=== PATIENT | male | born 1930 | race Caucasian/White ===

== ENCOUNTER 2020-03-26 12:18 | Inpatient (IN) | payer MEDICARE ==
--- NOTE | 2020-03-26 12:25 | ER Document Report ---
ED Medical Screen (RME) - General Chief Complaint: Altered Mental Status Stated Complaint: ALTERED MENTAL STATUS Time Seen by Provider: 03/26/20 12:20 Notes: Patient is an 89-year-old male who presents to the emergency department with altered mental status. Family member was at cart during assessment. She states that the patient's last known well time was at 10:00 last night. Patient woke up this morning disoriented. Patient was slurring his words. Family member states that the patient has short-term memory loss and also has a history of hypertension. Exam: Disoriented; slurred speech. I have greeted and performed a rapid initial assessment of this patient. A comprehensive ED assessment and evaluation of the patient, analysis of test results and completion of medical decision making process will be conducted by an additional ED providers.
--- NOTE | 2020-03-26 12:49 | RADIOLOGY REPORT (SQ) ---
EXAM DESCRIPTION: CT HEAD WITHOUT IMAGES COMPLETED DATE/TIME: 03/26/2020 12:35 pm REASON FOR STUDY: altered mental status COMPARISON: None. TECHNIQUE: Axial images acquired through the brain without intravenous contrast. Images reviewed wi th bone, brain and subdural windows. Additional sagittal and coronal reconstructions were generated. Images stored on PACS. All CT scanners at this facility use dose modulation, iterative reconstruction, and/or weight based d osing when appropriate to reduce radiation dose to as low as reasonably achievable (ALARA). [facility]: Dose Right [facility]: CareDose [facility]: Dose Right [facility]: Teradose 4D [facility]: Droidhen RADIATION DOSE: CT Rad equipment meets quality standard of care and radiation dose reduction techniq ues were employed. CTDIvol: 21.6 mGy. DLP: 498 mGy-cm.mGy. LIMITATIONS: None. FINDINGS: VENTRICLES: Prominent. CEREBRUM: No masses. No hemorrhage. No midline shift. Areas of low density in the white matter mos t likely due to chronic micro-vascular ischemic change. No evidence for acute infarction. CEREBELLUM: No masses. No hemorrhage. No alteration of density. No evidence for acute infarction. EXTRAAXIAL SPACES: Age-related involutional change. No fluid collections. No masses. ORBITS AND GLOBE: No intra- or extraconal masses. Normal contour of globe without masses. CALVARIUM: No fracture. PARANASAL SINUSES: No fluid or mucosal thickening. SOFT TISSUES: No mass or hematoma. OTHER: No other significant finding. IMPRESSION: CHRONIC CHANGES OF ATROPHY AND MICROVASCULAR ISCHEMIA. NO ACUTE PROCESS. EVIDENCE OF ACUTE STROKE: NO. COMMENT: Pertinent positive or negative findings of the imaging study reported as a CRITICAL EXAM reynaldo [facility] at12:42 on 03/26/2020. Category of Critical Exam: Stroke alert. TECHNICAL DOCUMENTATION: JOB ID: [id number] Quality ID # [id number]: Final reports with documentation of one or more dose reduction techniques (e.g., Au tomated exposure control, adjustment of the mA and/or kV according to patient size, use of iterative reconstruction technique) 2010 [employer]- All Rights Reserved Reading location - IP/workstation name: [email or web address]
[2020-03-26] MEDS ORDERED: LORAZEPAM INJ 2 MG/1 ML VIAL IV ONE ×2 (12:55→13:44)
--- NOTE | 2020-03-26 13:04 | RADIOLOGY REPORT (SQ) ---
EXAM DESCRIPTION: CHEST SINGLE VIEW IMAGES COMPLETED DATE/TIME: 03/26/2020 12:40 pm REASON FOR STUDY: AMS COMPARISON: None. EXAM PARAMETERS: NUMBER OF VIEWS: One view. TECHNIQUE: Single frontal radiographic view of the chest acquired. RADIATION DOSE: NA LIMITATIONS: None. FINDINGS: LUNGS AND PLEURA: No opacities, masses or pneumothorax. No pleural effusion. MEDIASTINUM AND HILAR STRUCTURES: No masses. Contour normal. HEART AND VASCULAR STRUCTURES: Heart normal in size. Normal vasculature. BONES: No acute findings. HARDWARE: None in the chest. OTHER: No other significant finding. IMPRESSION: NO ACUTE RADIOGRAPHIC FINDING IN THE CHEST. TECHNICAL DOCUMENTATION: JOB ID: [id number] 2010 [employer]- All Rights Reserved Reading location - IP/workstation name: DC
[2020-03-26] MEDS ORDERED: HALOPERIDOL LACTATE INJ 5 MG/1 ML VIAL IV ONE ×2 (13:09→13:30)
[2020-03-26] MEDS ORDERED: DIPHENHYDRAMINE HCL 50 MG/ML VIAL IV ONE ×2 (13:09→13:30)
[2020-03-26 13:21] LABS: ABSOLUTE BASOPHILS # (AUTO) 0.1 10^3/uL (0.0-0.2); ABSOLUTE EOSINOPHILS # (AUTO) 0.1 10^3/uL (0.0-0.6); ABSOLUTE LYMPHOCYTES (AUTO) 1.9 10^3/uL (0.5-4.7); ABSOLUTE MONOCYTES (AUTO) 0.8 10^3/uL (0.1-1.4); ABSOLUTE NEUT (AUTO) 3.6 10^3/uL (1.7-8.2); EOSINOPHILS % (AUTO) 2.3 % (0-6); HEMATOCRIT 41.1 % (37.9-51.0); HEMOGLOBIN 13.9 g/dL (13.5-17.0); LYMPHOCYTES % (AUTO) 29.4 % (13-45); MEAN CORPUSCULAR HEMOGLOBIN 32.2 pg (27.0-33.4); MEAN CORPUSCULAR VOLUME 95 fl (80-97); MONOCYTES % (AUTO) 11.8 % (3-13); PLATELET COUNT 170 10^3/uL (150-450); RED BLOOD COUNT 4.33 10^6/uL (4.35-5.55); RED CELL DISTRIBUTION WIDTH 14.1 % (11.5-14.0); SEGMENTED NEUTROPHILS % (AUTO) 55.5 % (42-78); TOTAL CELLS COUNTED % (AUTO) 100 %; WHITE BLOOD COUNT 6.4 10^3/uL (4.0-10.5)
[2020-03-26 13:24] LABS: INTERNATIONAL RATION (INR) 1.09; PROTHROMBIN TIME 14.2 SEC (11.4-15.4)
[2020-03-26 13:25] LABS: PARTIAL THROMBOPLASTIN TIME 25.1 SEC (23.5-35.8)
[2020-03-26 13:42] LABS: APPEARANCE,URINE CLEAR; BILIRUBIN,URINE NEGATIVE (NEGATIVE); COLOR,URINE YELLOW; GLUCOSE, URINE NEGATIVE (NEGATIVE); KETONES,URINE NEGATIVE (NEGATIVE); LEUKOCYTE ESTERASE,URINE NEGATIVE (NEGATIVE); NITRITE,URINE NEGATIVE (NEGATIVE); PROTEIN,URINE 100 mg/dL (NEGATIVE); UROBILINOGEN,URINE NEGATIVE mg/dL (<2.0)
[2020-03-26 13:50] LABS: ALBUMIN 4.3 g/dL (3.5-5.0); ALKALINE PHOSPHATASE 130 U/L (38-126); ANION GAP 11 (5-19); ASPARTATE AMINO TRANSFERASE 37 U/L (17-59); BILIRUBIN,TOTAL 0.7 mg/dL (0.2-1.3); BLOOD UREA NITROGEN 21 mg/dL (7-20); C-REACTIVE PROTEIN 5.1 mg/L (<10.0); CALCIUM 9.7 mg/dL (8.4-10.2); CARBON DIOXIDE 24 mmol/L (22-30); CHLORIDE 100 mmol/L (98-107); CREATINE KINASE 90 U/L (55-170); GLUCOSE 122 mg/dL (75-110); POTASSIUM 4.2 mmol/L (3.6-5.0); TOTAL PROTEIN 7.7 g/dL (6.3-8.2)
[2020-03-26] MEDS ORDERED: OLANZAPINE INJ/PF 10 MG SDV IM ONE (13:50)
[2020-03-26] MEDS ORDERED: PROPOFOL 1,000 MG/100 ML INFUS..BTL IV PRN ×2 (14:30→14:31)
[2020-03-26] MEDS ORDERED: PROPRANOLOL HCL INJ/PF 1 MG/1 ML SDV IV ONE (14:35)
[2020-03-26] MEDS ORDERED: NORMAL SALINE 500 ML IV ONE (14:50)
[2020-03-26] MEDS ORDERED: MAGNESIUM SULFATE/D5W 3 GM/300 ML RTUPB IV ONE (14:54)
[2020-03-26] MEDS: MAGNESIUM SULFATE/D5W 1 GM/100 ML RTUPB IV SCH ×3 (15:00→17:00)
--- NOTE | 2020-03-26 15:15 | RADIOLOGY REPORT (SQ) ---
EXAM DESCRIPTION: CHEST SINGLE VIEW IMAGES COMPLETED DATE/TIME: 03/26/2020 3:02 pm REASON FOR STUDY: Post intubation COMPARISON: 03/26/2020 at 1238 hours. EXAM PARAMETERS: NUMBER OF VIEWS: One view. TECHNIQUE: Single frontal radiographic view of the chest acquired. RADIATION DOSE: NA LIMITATIONS: None. FINDINGS: LUNGS AND PLEURA: No opacities, masses or pneumothorax. No pleural effusion. MEDIASTINUM AND HILAR STRUCTURES: No masses. Contour normal. HEART AND VASCULAR STRUCTURES: Heart normal in size. Normal vasculature. BONES: No acute findings. HARDWARE: Endotracheal tube, tip located 5 cm proximal to the josiah. Nasogastric tube, tip not well -visualized but appears to be below the diaphragm. OTHER: No other significant finding. IMPRESSION: LIFE LINES DESCRIBED. OTHERWISE NO ACUTE RADIOGRAPHIC FINDING IN THE CHEST. TECHNICAL DOCUMENTATION: JOB ID: [id number] 2010 [employer]- All Rights Reserved Reading location - IP/workstation name: [id number]
[2020-03-26] MEDS ORDERED: DEXTROSE 5%-WATER 250 ML with NOREPINEPHRINE BITARTRATE 4 MG IV PRN ×2 (15:19)
[2020-03-26] MEDS ORDERED: NOREPINEPHRINE BITARTRATE INJ/PF 4 MG/4 ML SDV IV ONE (15:40)
--- NOTE | 2020-03-26 15:45 | CRITICAL CARE ADMISSION REPORT ---
[facility] Date:: 03/26/20 Time:: 15:00 Reason for ICU Reason:: Post Cardiac Arrest Admission Date/Time & PCP: Admission Date/Time: Primary Care Provider: HPI: 89-year-old white male with advanced dementia with unknown current past medical history presented to the hospital emergency room today after his found him to be confused and encephalopathic. His encephalopathy progressed to the point that he became combative and required multiple rounds of medications to control agitation and combativeness. In review of medications he received 10 mg of Zyprexa IM 2 mg of Ativan 6 mg of Haldol in interventional dosing pattern. He was sent for CT which was difficult to obtain secondary to his movement. CT was unremarkable. He then had V. tach on the monitor became pulseless and underwent 1-2 rounds of ACLS with epinephrine and CPR. He was intubated for this. Critical care was called for post cardiac arrest management and care. Patient is currently unresponsive and on mechanical ventilation. He is hypotens red. Lengthy discussion was carried out with his . She says that he was last normal in the evening. His normal is moderate dementia and he has been worsening. He awoke this morning confused agitated and difficult to reason with. She is unsure if he had any urinary tract symptoms or respiratory symptoms. Neither the or the patient have been exposed publicly to any illnesses. They have been quarantined at the request of their family who are of medical background. Patient was seen and examined in the emergency room. He was hypotensive with a blood pressure of 74/40. IV fluids were ordered. Stat bedside critical care ultrasound and echo showed dilated ejection fraction at approximately 25% with global dysfunction. Levophed has been ordered. His skin is cool. Pupils are midrange and slightly reactive. He moves extremities to noxious stimulus History obtained from:: , ED staff, Family - Diagnosis/Plan (1) Cardiac arrest Is this a current diagnosis for this admission?: Yes (2) Cardiogenic shock Is this a current diagnosis for this admission?: Yes (3) Acute respiratory failure with hypoxia Is this a current diagnosis for this admission?: Yes (4) Prolonged QT interval syndrome Is this a current diagnosis for this admission?: Yes (5) Acute metabolic encephalopathy Is this a current diagnosis for this admission?: Yes (6) Dementia associated with other underlying disease with behavioral disturbance Is this a current diagnosis for this admission?: Yes Plan Summary: Patient has post cardiac arrest syndrome with hypotension. His ejection fractio n is reduced as well. I reviewed his EKG which shows a prolonged QTC with intraventricular conduction delay and ectopic atrial tachycardia. He has a large S wave wave in lead 1. There is a trend to right bundle branch block and a left anterior fascicular block. My suspicion is that the patient has some type of encephalitis which may be infectious in origin. This then caused significant combativeness in a patient who already had moderate dementia. An attempt to control and protect the patien t in the emergency room gave medications which were appropriate given the circumstances and situation. It appears that there may have been an R-on-T phenomenon which may have occurred given his EKG findings and bundle branch block patterns. I have given him magnesium quickly and will continue to monitor his electrolytes accordingly. Given his presentation this patient will obviously need spinal tap for CSF analysis. He is hypotensive and will need central venous access as well as arterial cannulation for blood pressure monitoring. Having discussed the treatment options for this patient the has declined any aggressive care. She also place me on the phone with her family members who are of the medical background 1 of which is her son-in-law who is a physician. They are in agreement with the 's discussion regarding DNR/DNI status and no aggressive care. Given the fact the patient is on mechanical ventilation with hypotension there are in agreement with Levopatriciaed but requested the patient not have any escalation of care. They are requesting that he be maintained on mechanical ventilation until they arrive so that they may transition to comfort care mode with family present. To that end we have agreed and feel that this is reasonable. We did come to an agreement that if he should continue to fail that they are comfortable and transition to comfort care mode prior to their arrival. Past Medical History Medical History: Other - Unknown patient has not been here before. states patient has dementia Social/Family History - Social History Lives with: Spouse/Significant other Smoking Status: Unknown if Ever Smoked - Family History Family History: None - Medication/Allergies Allergies/Adverse Reactions: cephalexin [From Keflex] Allergy (Verified 03/26/20 13:07) Review of Systems ROS unobtainable: Due to endotracheal tube, Due to mental status Physical Exam Vital Signs: Temp Pulse Resp BP Pulse Ox 20 76/44 L 100 03/26/20 15:01 03/26/20 15:00 03/26/20 15:01 Intake & Output 03/25/20 03/26/20 03/27/20 06:59 06:59 06:59 Weight 98.43 kg Weight/Height Weight 98.43 kg Height 5 ft 11 in General appearance: PRESENT: well-developed, well-nourished Exam: Intubated elderly toxic appearing 89-year-old male responsive to noxious s timulus only. Head exam: PRESENT: atraumatic, normocephalic Eye exam: PRESENT: conjunctival injection, conjunctiva pink, other - Pupils midrange and slow to react. ABSENT: nystagmus Mouth exam: PRESENT: dry mucosa Teeth exam: PRESENT: edentulous Neck exam: PRESENT: other - Intubated. ABSENT: carotid bruit, JVD, lymphadenopathy, thyromegaly, tracheal deviation Respiratory exam: PRESENT: rhonchi, tachypnea. ABSENT: accessory muscle use, unlabored Cardiovascular exam: PRESENT: irregular rhythm Pulses: ABSENT: normal dorsalis pedis pul GI/Abdominal exam: PRESENT: diminished bowel sounds, firm. ABSENT: distended Rectal exam: PRESENT: deferred Gentrourinary exam: PRESENT: indwelling catheter, other - Blood noted in urinary catheter Extremities exam: PRESENT: pedal edema Musculoskeletal exam: ABSENT: deformity, dislocation Neurological exam: PRESENT: altered, other - Response to noxious stimulus only. Does not follow commands. Pupils midrange and slow to react Skin exam: ABSENT: cyanosis, mottled, pallor, petechiae Tubes/Lines: PRESENT: Endotracheal Tube, Nasogastic Tube, Other - Peripheral IVs Laboratory/Radiographs Laboratory Results: 03/26/20 12:55 03/26/20 12:55 03/26/20 03/26/20 03/26/20 12:55 12:55 13:30 WBC 6.4 RBC 4.33 L Hgb 13.9 Hct 41.1 MCV 95 MCH 32.2 MCHC 34.0 RDW 14.1 H Plt Count 170 Seg Neutrophils % 55.5 Sodium 134.8 L Potassium 4.2 Chloride 100 Carbon Dioxide 24 Anion Gap 11 BUN 21 H Creatinine 1.39 H Est GFR ( Amer) 58 L Glucose 122 H Calcium 9.7 Magnesium 2.2 Total Bilirubin 0.7 AST 37 Alkaline Phosphatase 130 H C-Reactive Protein 5.1 Total Protein 7.7 Albumin 4.3 Urine Color YELLOW Urine Appearance CLEAR Urine pH 6.0 Ur Specific [place] 1.010 Urine Protein 100 H Urine Glucose (UA) NEGATIVE Urine Ketones NEGATIVE Urine Blood SMALL H Urine Nitrite NEGATIVE Ur Leukocyte Esterase NEGATIVE Urine WBC (Auto) 2 Urine RBC (Auto) 2 03/26/20 03/26/20 12:55 12:55 Creatine Kinase 90 Troponin I 0.023 Impressions: Head CT 03/26/20 00:00 IMPRESSION: CHRONIC CHANGES OF ATROPHY AND MICROVASCULAR ISCHEMIA. NO ACUTE PROCESS. EVIDENCE OF ACUTE STROKE: NO. Chest X-Ray 03/26/20 14:30 IMPRESSION: LIFE LINES DESCRIBED. OTHERWISE NO ACUTE RADIOGRAPHIC FINDING IN THE CHEST. All labs, radiographs, diagnostic studies and EKGs were personally reviewed: Yes In addition, reports of radiographic and diagnostic studies were read: Yes Critical Time Critical Time (minutes): 70 -: The care of a critically ill patient is dynamic. This note represents a static moment in the admission process. Orders and treatments may be given simultaneously and urgently, and time is not pharmaceutical sales representative of the treatment process. This patient requires Critical Care secondary to life threatening organ or limb dysfunction. Without Critical Care services, the patient is at risk for increased mortality and morbidity.
--- NOTE | 2020-03-26 18:44 | EKG REPORT ---
SEVERITY:- ABNORMAL ECG - SINUS TACHYCARDIA RBBB AND LAFB PROBABLE LVH WITH SECONDARY REPOL ABNRM : Confirmed by: Alejandro Trinh MD 26-Mar-2020 18:43:32
[2020-03-26] MEDS: MORPHINE SULFATE 60 MG/60 ML RTUINJ IV PRN (18:46)
[2020-03-26] MEDS: LORAZEPAM INJ 2 MG/1 ML VIAL IV PRN (20:04)
[2020-03-26] MEDS ORDERED: EPINEPHRINE INJ 1 MG/10 ML DISP.SYRIN ONE (20:12)
[2020-03-26] MEDS ORDERED: MORPHINE SULFATE 10 MG/ML INJ ONE (21:00)
[2020-03-26] MEDS ORDERED: MORPHINE SULFATE 10 MG/ML INJ IV ONE (22:00)
[2020-03-27] MEDS: LORAZEPAM INJ 2 MG/1 ML VIAL IV PRN ×2 (00:32→03:34)
[2020-03-27] MEDS ORDERED: SCOPOLAMINE HYDROBROMIDE 1.5 MG PATCH.TD72 TD ONE (00:45)
[2020-03-27] MEDS ORDERED: MORPHINE SULFATE 10 MG/ML INJ ONE (05:47)
[2020-03-27] MEDS ORDERED: MORPHINE SULFATE 10 MG/ML INJ IV ONE ×2 (05:49→06:05)
--- NOTE | 2020-03-27 09:31 | ER Document Report ---
Entered by VLAD MYERS SCRIBE 03/26/20 1254 Acting as scribe for:BHARATH JOHNSON MD ED General - General Chief Complaint: Altered Mental Status Stated Complaint: ALTERED MENTAL STATUS Time Seen by Provider: 03/26/20 12:20 Information source: Relative Cannot obtain history due to: Altered mental status Notes: This 89 year old male patient presents to the emergency department today with complaints of altered mental status. at bedside reports that the patient went to bed last night at 10:30 PM and he was seemingly normal. The patient woke up at 8:30 AM this morning and seemed to be slightly confused per . states that this morning when he woke up he would not take his morning meds and his speech seemed to be garbled. states that the patient is now significantly more confused now than he was when he woke up. Patient continues to try to get up out of bed, has brief episodes of explosive yelling/thrashing around, swinging and kicking at staff members. TRAVEL OUTSIDE OF THE [place] IN LAST 30 DAYS: No - Related Data Allergies/Adverse Reactions: cephalexin [From Keflex] Allergy (Verified 03/26/20 13:07) Past Medical History - General Information source: Relative Cannot obtain history due to: Altered mental status - Social History Smoking Status: Unknown if Ever Smoked Occupation: retired Lives with: Spouse/Significant other Family History: Reviewed & Not Pertinent - Past Medical History Cardiac Medical History: Reports: Hx Hypercholesterolemia, Hx Hypertension GI Medical History: Reports: Hx Gastroesophageal Reflux Disease Musculoskeletal Medical History: Reports Hx Gout Review of Systems - Review of Systems -: Yes ROS unobtainable due to patient's medical condition Physical Exam - Vital signs Vitals: Temp 98.2 F 03/26/20 12:19 Interpretation: Hypertensive, Tachycardic - General General appearance: Alert, Combative, Other - Agitated, confused - HEENT Head: Normocephalic, Atraumatic Eyes: Normal Pupils: PERRL - Respiratory Respiratory status: No respiratory distress Breath sounds: Normal - Cardiovascular Rhythm: Regular, Tachycardia Heart sounds: Normal auscultation Murmur: No - Abdominal Inspection: Normal Bowel sounds: Normal Tenderness: Nontender - Genitourinary Inspection: Normal - Back Back: Normal - Extremities General upper extremity: Normal inspection General lower extremity: Normal inspection - Neurological Neuro grossly intact: Yes Cognition: Confused Orientation: Disoriented to events Wirtz Coma Scale Verbal: Confused Devan Coma Scale Motor: Localizes to Pain Speech: Expressive aphasia Cranial nerves: Normal Cerebellar coordination: Normal Motor strength normal: LUE, RUE, LLE, RLE Additional motor exam normals: Equal music leader Babinski reflex: Normal (flexor plantar) Sensory: Normal Notes: Patient appears to be encephalopathic. He is yelling out and complaining about anyone who touches him. He tries to strike and kick at people. He is using multi word phrases, but many of the words are jumbled or part of the word is pronounced wrong. How he is expressing himself seems to make sense in the context of what he is trying to complain about. - Psychological Associated symptoms: Psychomotor agitation, Other - Dementia, encephalopathic - Skin Skin Temperature: Warm Skin Moisture: Dry Skin Color: Normal Course - Re-evaluation Re-evalutation: 03/26/20 13:30 The patient has had 1 mg Ativan IV, 3 mg of Haldol IV, 12.5 mg Benadryl IV. At this time he continues to be quite combative and difficult to control however there is some sedation noted compared to prior to getting the medications. He will be given additional doses of Haldol and Benadryl and then reevaluated. 03/26/20 19:05 Around 1420, I was called to the room as the patient had just gone into V. fib cardiac arrest. Chest compressions had been started, [id number] was applied. The defibrillator/pacer pads were applied. Patient received 1 mg epinephrine, he was defibrillated, CPR resumed. He was intubated with a 7.5 endotracheal tube, and shortly afterwards developed ROSC. He was placed on a dipper Van drip. - Vital Signs Vital signs: Temp Pulse Resp BP Pulse Ox 99.3 F 69 21 H 105/45 L 94 03/26/20 17:24 03/26/20 19:41 03/26/20 19:41 03/26/20 19:41 03/26/20 19:41 - Laboratory Result Diagrams: 03/26/20 12:55 03/26/20 12:55 Laboratory results interpreted by me: 03/26/20 03/26/20 03/26/20 12:55 12:55 13:30 RBC 4.33 L RDW 14.1 H Sodium 134.8 L BUN 21 H Creatinine 1.39 H Est GFR ( Amer) 58 L Est GFR (MDRD) Non-Af 48 L Glucose 122 H Alkaline Phosphatase 130 H Ammonia Urine Protein 100 H Urine Blood SMALL H 03/26/20 15:05 RBC RDW Sodium BUN Creatinine Est GFR ( Amer) Est GFR (MDRD) Non-Af Glucose Alkaline Phosphatase Ammonia < 8.7 L Urine Protein Urine Blood - Diagnostic Test Radiology reviewed: Image reviewed, Reports reviewed - CT scan of the head shows chronic atrophy with microvascular ischemic changes. Chest x-ray does not show acute cardiopulmonary changes. CXR--NAD, post intubation chest x-ray shows the e ndotracheal tube tip 5 cm proximal to the josiah, nasogastric tube appears to go below the diaphragm. - EKG Interpretation by Pr EKG shows normal: Sinus rhythm, [place], Intervals, QRS Complexes, ST-T Waves Rate: Tachycardia - 116 [place]/QRS: RBBB, LAHB/LAFB Voltage: Consistant with LVH When compared to previous EKG there are: Previous EKG unavailable - This is a post arrest EKG. Procedures - Intubation Orotracheal Time of Intubation: 14:20 Airway evaluation: Normal anatomy, Copious secretions Intubation method: Orotracheal Blade type: Other - Ap vision curved channeled blade Equipment used: Other - Ap vision ETT size: 7.5 Breath Sounds after Intubation: Equal End tidal CO2 confirmed: Yes Ventilator settings: SIMV Post Intubation Xray: Yes Intubation Complications: No complications Critical Care Note - Critical Care Note Total time excluding time spent on procedures (mins): 50 Comments: At least 50 minutes spent on initial evaluation of the patient discussions with his spouse, and attempted medical management of his acute delirium and encephalopathy. Patient was discussed with hospital service. At some point after that the patient went into ventricular fibrillation cardiac arrest, he was successfully resuscitated to ROSC, intubated by myself, and discussions with the iron melter were done. The patient was ultimately admitted to the intensive care unit. Discharge - Discharge Clinical Impression: Dementia associated with other underlying disease with behavioral disturbance, Prolonged QT interval syndrome, Cardiac arrest, Acute metabolic encephalopathy, Acute respiratory failure with hypoxia, History of sudden cardiac arrest successfully resuscitated, Cardiac arrest with ventricular fibrillation Condition: Critical Disposition: ADMITTED INPATIENT Admitting Provider: Hanny (Publications Designer) Unit Admitted: ICU I personally performed the services described in the documentation, reviewed and edited the documentation which was dictated to the scribe in my presence, and it accurately records my words and actions.
[2020-03-27 10:10] VITALS: BP 101/59
--- NOTE | 2020-03-27 11:15 | PDOC CRITICAL CARE PROG REPORT ---
General Date:: 03/27/20 Hospital Day:: 1 Resuscitation Status: Do Not Resuscitate Events in the past 12 to 24 Hours:: Made comfort care by family request. Review of systems relevant to events:: Neurological, CV, Respiratory Reason for ICU Addmission:: Post Cardiac Arrest - Medications: Medications reviewed and adjusted accordingly: Yes Vasopressors:: None Sedation:: PRN versed. Morphine Physical Exam Vital Signs: Temp Pulse Resp BP Pulse Ox 99.3 F 69 7 L 101/59 L 86 L 03/26/20 17:24 03/26/20 19:41 03/27/20 10:00 03/27/20 07:44 03/27/20 10:00 Intake & Output 03/26/20 03/27/20 03/28/20 06:59 06:59 06:59 Intake Total 829 Output Total 415 Balance 414 Weight 100.1 kg Weight/Height Weight 100.1 kg Height 5 ft 9 in General appearance: PRESENT: no acute distress Head exam: PRESENT: atraumatic, normocephalic Eye exam: PRESENT: conjunctiva pink, EOMI, PERRLA. ABSENT: scleral icterus Ear exam: PRESENT: normal external ear exam Mouth exam: PRESENT: dry mucosa Teeth exam: PRESENT: other - Endentulous Respiratory exam: PRESENT: decreased breath sounds Cardiovascular exam: PRESENT: RRR. ABSENT: diastolic murmur, rubs, systolic murmur GI/Abdominal exam: PRESENT: normal bowel sounds, soft. ABSENT: distended, guarding, mass, organolmegaly, rebound, tenderness Rectal exam: PRESENT: deferred Extremities exam: PRESENT: full ROM. ABSENT: calf tenderness, clubbing, pedal edema Neurological exam: PRESENT: altered, other - Obtunded Skin exam: PRESENT: dry, intact, warm. ABSENT: cyanosis, rash Laboratory/Radiographs Laboratory Results: 03/26/20 12:55 03/26/20 12:55 03/26/20 03/26/20 03/26/20 12:55 12:55 13:30 WBC 6.4 RBC 4.33 L Hgb 13.9 Hct 41.1 MCV 95 MCH 32.2 MCHC 34.0 RDW 14.1 H Plt Count 170 Seg Neutrophils % 55.5 Sodium 134.8 L Potassium 4.2 Chloride 100 Carbon Dioxide 24 Anion Gap 11 BUN 21 H Creatinine 1.39 H Est GFR ( Amer) 58 L Glucose 122 H Calcium 9.7 Magnesium 2.2 Total Bilirubin 0.7 AST 37 Alkaline Phosphatase 130 H Ammonia C-Reactive Protein 5.1 Total Protein 7.7 Albumin 4.3 Urine Color YELLOW Urine Appearance CLEAR Urine pH 6.0 Ur Specific [place] 1.010 Urine Protein 100 H Urine Glucose (UA) NEGATIVE Urine Ketones NEGATIVE Urine Blood SMALL H Urine Nitrite NEGATIVE Ur Leukocyte Esterase NEGATIVE Urine WBC (Auto) 2 Urine RBC (Auto) 2 03/26/20 15:05 WBC RBC Hgb Hct MCV MCH MCHC RDW Plt Count Seg Neutrophils % Sodium Potassium Chloride Carbon Dioxide Anion Gap BUN Creatinine Est GFR ( Amer) Glucose Calcium Magnesium Total Bilirubin AST Alkaline Phosphatase Ammonia < 8.7 L C-Reactive Protein Total Protein Albumin Urine Color Urine Appearance Urine pH Ur Specific [place] Urine Protein Urine Glucose (UA) Urine Ketones Urine Blood Urine Nitrite Ur Leukocyte Esterase Urine WBC (Auto) Urine RBC (Auto) 03/26/20 03/26/20 12:55 12:55 Creatine Kinase 90 Troponin I 0.023 Impressions: Head CT 03/26/20 00:00 IMPRESSION: CHRONIC CHANGES OF ATROPHY AND MICROVASCULAR ISCHEMIA. NO ACUTE PROCESS. EVIDENCE OF ACUTE STROKE: NO. Chest X-Ray 03/26/20 14:30 IMPRESSION: LIFE LINES DESCRIBED. OTHERWISE NO ACUTE RADIOGRAPHIC FINDING IN THE CHEST. All labs, radiographs, diagnostic studies and EKGs were personally reviewed: Yes In addition, reports of radiographic and diagnostic studies were read: Yes Assessment and Plan - Diagnosis (1) Acute metabolic encephalopathy Is this a current diagnosis for this admission?: Yes Plan: This is after his arrest. He is obtunded and unresponsive. (2) Cardiac arrest Is this a current diagnosis for this admission?: Yes Plan: This was a genuine arrest with ACLS protocol. Despite this at his extreme age his functional recovery is close to zero in light of his baseline dementia. (3) Dementia associated with other underlying disease with behavioral disturbance Is this a current diagnosis for this admission?: Yes Plan: This is yet another negative prognostic factor. Plan Summary: Pt is made comfort care by family wishes. Critical Time Critical Time (minutes): 30 Level of Care: MEDICAL Anticipated discharge: Hospice Within: Other -: 1. The care of a critical patient is a dynamic process. This note is a manufacturer representative synopsis but static in nature. The timeframe for treatments given in order is not necessarily the actual time these treatments may have been done. 2. This patient requires critical care secondary to ongoing requirements for therapy not offered or safe outside the critical care environment. Transfer to a lower level of care will result in altered life or limb morbidity and mortality. 3. Multidisciplinary rounds completed. 4. ABCDE bundle addressed.
[2020-03-27] MEDS: MORPHINE SULFATE 60 MG/60 ML RTUINJ IV PRN (21:30)
--- NOTE | 2020-03-28 09:05 | PDOC CRITICAL CARE PROG REPORT ---
General Date:: 03/28/20 Hospital Day:: 2 Resuscitation Status: Comfort Measures Only Events in the past 12 to 24 Hours:: Breathing getting shallower and O2 saturations dropping. Review of systems relevant to events:: Neurologic, pulmonary. Reason for ICU Addmission:: Post Cardiac Arrest with anoxic brain injury. - Medications: Medications reviewed and adjusted accordingly: Yes Vasopressors:: None Sedation:: None Physical Exam Vital Signs: Temp Pulse Resp BP Pulse Ox 99.3 F 69 7 L 101/59 L 80 L 03/26/20 17:24 03/26/20 19:41 03/27/20 14:00 03/27/20 07:44 03/27/20 14:00 Intake & Output 03/27/20 03/28/20 03/29/20 06:59 06:59 06:59 Intake Total 829 Output Total 415 Balance 414 Weight 100.1 kg Weight/Height Weight 100.1 kg Height 5 ft 9 in General appearance: PRESENT: thin, other - Unresponsive. Head exam: PRESENT: atraumatic, normocephalic Ear exam: PRESENT: normal external ear exam Mouth exam: PRESENT: dry mucosa Teeth exam: PRESENT: edentulous Respiratory exam: PRESENT: clear to auscultation ann, decreased breath sounds. ABSENT: rales, rhonchi, wheezes Cardiovascular exam: PRESENT: RRR. ABSENT: diastolic murmur, rubs, systolic murmur GI/Abdominal exam: PRESENT: normal bowel sounds, soft. ABSENT: distended, guarding, mass, organolmegaly, rebound, tenderness Rectal exam: PRESENT: deferred Gentrourinary exam: PRESENT: indwelling catheter Extremities exam: PRESENT: full ROM. ABSENT: calf tenderness, clubbing, pedal edema Musculoskeletal exam: PRESENT: normal inspection Neurological exam: PRESENT: other - Unresponsive. Skin exam: PRESENT: dry, intact, warm. ABSENT: cyanosis, rash Laboratory/Radiographs Laboratory Results: 03/26/20 12:55 03/26/20 12:55 03/26/20 03/26/20 12:55 12:55 Creatine Kinase 90 Troponin I 0.023 Impressions: Head CT 03/26/20 00:00 IMPRESSION: CHRONIC CHANGES OF ATROPHY AND MICROVASCULAR ISCHEMIA. NO ACUTE PROCESS. EVIDENCE OF ACUTE STROKE: NO. Chest X-Ray 03/26/20 14:30 IMPRESSION: LIFE LINES DESCRIBED. OTHERWISE NO ACUTE RADIOGRAPHIC FINDING IN THE CHEST. All labs, radiographs, diagnostic studies and EKGs were personally reviewed: Yes In addition, reports of radiographic and diagnostic studies were read: Yes Assessment and Plan - Diagnosis (1) Anoxic brain damage Is this a current diagnosis for this admission?: Yes Plan: As a consequence of his arrest. With baseline dementia, functional recovery very unlikely. (2) Cardiac arrest Is this a current diagnosis for this admission?: Yes Plan: Resolved (3) Dementia associated with other underlying disease with behavioral disturbance Is this a current diagnosis for this admission?: Yes Plan: At baseline, making functional recovery nearly impossible. Plan Summary: Still awaiting floor bed. Critical Time Critical Time (minutes): 20 Level of Care: MEDICAL Anticipated discharge: Hospice Within: Other -: 1. The care of a critical patient is a dynamic process. This note is a physician relations representative synopsis but static in nature. The timeframe for treatments given in order is not necessarily the actual time these treatments may have been done. 2. This patient requires critical care secondary to ongoing requirements for therapy not offered or safe outside the critical care environment. Transfer to a lower level of care will result in altered life or limb morbidity and mortality. 3. Multidisciplinary rounds completed. 4. ABCDE bundle addressed.
--- NOTE | 2020-03-28 11:56 | PDOC PROGRESS REPORT ---
Subjective Progress Note for:: 03/28/20 Subjective:: Received signout from outdoor fitness trainer. Patient had presented couple of days back and went into cardiac arrest. Documentation notes from admission outdoor fitness trainer and ER physician states that patient was in V. tach/VFib. Patient had been resuscitated. Informed by outdoor fitness trainer that family has opted for hospice and comfort measures only. Wishes will be respected. Patient is on morphine and hospice care. Currently comatose. Reason For Visit: ENCEPHALOPATHY,POST-CARDIAC ARREST Physical Exam Vital Signs: Temp Pulse Resp BP Pulse Ox 99.3 F 69 7 L 101/59 L 80 L 03/26/20 17:24 03/26/20 19:41 03/27/20 14:00 03/27/20 07:44 03/27/20 14:00 Intake & Output 03/27/20 03/28/20 03/29/20 06:59 06:59 06:59 Intake Total 829 Output Total 415 Balance 414 Weight 100.1 kg General appearance: PRESENT: no acute distress Respiratory exam: PRESENT: unlabored, other - bradypneic with long periods of apnea Cardiovascular exam: PRESENT: bradycardia Neurological exam: PRESENT: other - Comatose. ABSENT: alert, awake Results Laboratory Results: 03/26/20 12:55 03/26/20 12:55 03/26/20 03/26/20 12:55 12:55 Creatine Kinase 90 Troponin I 0.023 Impressions: Head CT 03/26/20 00:00 IMPRESSION: CHRONIC CHANGES OF ATROPHY AND MICROVASCULAR ISCHEMIA. NO ACUTE PROCESS. EVIDENCE OF ACUTE STROKE: NO. Chest X-Ray 03/26/20 14:30 IMPRESSION: LIFE LINES DESCRIBED. OTHERWISE NO ACUTE RADIOGRAPHIC FINDING IN THE CHEST. Assessment and Plan - Diagnosis (1) Hospice care Is this a current diagnosis for this admission?: Yes (2) Cardiac arrest Is this a current diagnosis for this admission?: Yes (3) Cardiogenic shock Is this a current diagnosis for this admission?: Yes (4) Dementia associated with other underlying disease with behavioral disturbance Is this a current diagnosis for this admission?: Yes (5) Prolonged QT interval syndrome Is this a current diagnosis for this admission?: Yes - Plan Summary Summary: Patient downgraded to medical floor for continuation of hospice care comfort measures only. Continue hospice medications Likely patient will pass soon Family allowed for visitations - Time Time Spent with patient: Less than 15 minutes
[2020-03-29] MEDS: MORPHINE SULFATE 60 MG/60 ML RTUINJ IV PRN (02:04)
[2020-03-29] MEDS: LORAZEPAM INJ 2 MG/1 ML VIAL IV PRN (07:08)
--- NOTE | 2020-03-29 12:20 | PDOC PROGRESS REPORT ---
Subjective Progress Note for:: 03/29/20 Subjective:: Not obtainable Reason For Visit: ENCEPHALOPATHY,POST-CARDIAC ARREST Physical Exam Vital Signs: Temp Pulse Resp BP Pulse Ox 99.3 F 69 10 L 101/59 L 66 L 03/26/20 17:24 03/26/20 19:41 03/29/20 07:22 03/27/20 07:44 03/29/20 07:22 Intake & Output 03/28/20 03/29/20 03/30/20 06:59 06:59 06:59 Output Total 75 Balance -75 Weight 99.9 kg General appearance: PRESENT: no acute distress Eye exam: ABSENT: scleral icterus Mouth exam: PRESENT: neck supple Respiratory exam: PRESENT: symmetrical, unlabored, other - bradypneic. ABSENT: tachypnea Cardiovascular exam: PRESENT: +S1, +S2. ABSENT: irregular rhythm, tachycardia GI/Abdominal exam: PRESENT: soft. ABSENT: rebound, rigid, tenderness Neurological exam: PRESENT: altered, other - Comatose. ABSENT: alert, awake Psychiatric exam: ABSENT: agitated, anxious Results Laboratory Results: 03/26/20 12:55 03/26/20 12:55 03/26/20 03/26/20 12:55 12:55 Creatine Kinase 90 Troponin I 0.023 Impressions: Head CT 03/26/20 00:00 IMPRESSION: CHRONIC CHANGES OF ATROPHY AND MICROVASCULAR ISCHEMIA. NO ACUTE PROCESS. EVIDENCE OF ACUTE STROKE: NO. Chest X-Ray 03/26/20 14:30 IMPRESSION: LIFE LINES DESCRIBED. OTHERWISE NO ACUTE RADIOGRAPHIC FINDING IN THE CHEST. Assessment and Plan - Diagnosis (1) Hospice care Is this a current diagnosis for this admission?: Yes (2) Cardiac arrest Is this a current diagnosis for this admission?: Yes (3) Cardiogenic shock Is this a current diagnosis for this admission?: Yes (4) Dementia associated with other underlying disease with behavioral disturbance Is this a current diagnosis for this admission?: Yes (5) Prolonged QT interval syndrome Is this a current diagnosis for this admission?: Yes - Plan Summary Summary: Patient downgraded to medical floor for continuation of hospice care comfort measures only. Continue hospice medications Likely patient will pass soon Family allowed for visitations 03/29/2020-patient is currently still yet to pass. However I do believe that his is imminent. We will continue hospice care. Continue morphine IV pump for pain or work of breathing, IV lorazepam for anxiety/agitation and maintain scopolamine patch to help manage secretions. Family will continue to be allowed visitations. - Time Time Spent with patient: Less than 15 minutes
--- NOTE | 2020-03-29 13:51 | Death Summary ---
Summary Date : 03/29/20 Time of :: 13:07 Autopsy: No Resuscitation Status: Do Not Resuscitate - Final Diagnosis (1) Cardiac arrest Is this a current diagnosis for this admission?: Yes (2) Cardiogenic shock Is this a current diagnosis for this admission?: Yes (3) Hospice care Is this a current diagnosis for this admission?: Yes (4) Dementia associated with other underlying disease with behavioral disturbance Is this a current diagnosis for this admission?: Yes (5) Prolonged QT interval syndrome Is this a current diagnosis for this admission?: Yes Hospital Course:: HPI as per admitting provider: 89-year-old white male with advanced dementia with unknown current past medical history presented to the hospital emergency room today after his found him to be confused and encephalopathic. His encephalopathy progressed to the point that he became combative and required multiple rounds of medications to control agitation and combativeness. In review of medications he received 10 mg of Zyprexa IM 2 mg of Ativan 6 mg of Haldol in interventional dosing pattern. He was sent for CT which was difficult to obtain secondary to his movement. CT was unremarkable. He then had V. tach on the monitor became pulseless and underwent 1-2 rounds of ACLS with epinephrine and CPR. He was intubated for this. Critical care was called for post cardiac arrest management and care. Patient is currently unresponsive and on mechanical ventilation. He is hypotensive. Lengthy discussion was carried out with his . She says that he was last normal in the evening. His normal is moderate dementia and he has been worsening. He awoke this morning confused agitated and difficult to reason with. She is unsure if he had any urinary tract symptoms or respiratory symptoms. Neither the or the patient have been exposed publicly to any illnesses. They have been quarantined at the request of their family who are of medical background. Patient was seen and examined in the emergency room. He was hypotensive with a blood pressure of 74/40. IV fluids were ordered. Stat bedside critical care ultrasound and echo showed dilated ejection fraction at approximately 25% with global dysfunction. Levophed has been ordered. His skin is cool. Pupils are midrange and slightly reactive. He moves extremities to noxious stimulus Hospital course Following patient's cardiac arrest to the emergency department, patient was admitted to the ICU. It was suspected that patient had experienced pulseless V. tach/V. fib and cardiogenic shock as per documentation. Conversation was had between bell staff and patient's family who opted for palliative extubation and hospice care. Patient was palliatively extubated and hospice care was commenced. Patient was placed on appropriate hospice medications. He was downgraded to the general medical floor yesterday. Family has been visiting patient. Patient at 1307 on 03/29/2020. I have examined patient and pronounced patient . I have filled the certificate and discussed with family in the waiting room who very much appreciate the care given to patient in the hospital.
[2020-03-30] MEDS ORDERED: SCOPOLAMINE HYDROBROMIDE 1.5 MG PATCH.TD72 TD SCH (10:00)
== END 2020-03-29 14:27 | disposition left against medical advice (07) | DRG 291 ==
LOC: ER 12:18 → EH 15:53 → ICU 17:08 → 4N 03-28 11:22
PROVIDERS: ADMIT Internal Medicine Critical Care Medicine; ATTEND Internal Medicine Critical Care Medicine
PROC: 5A1935Z Respiratory Ventilation, Less than 24 Consecutive Hours (ICD-10-PCS; principal; 2020-03-26)
PROC: 0BH17EZ Insertion of Endotracheal Airway into Trachea, Via Natural or Artificial Opening (ICD-10-PCS; 2020-03-26)
DX: R57.0 Cardiogenic shock (principal); J96.01 Acute respiratory failure with hypoxia; G93.41 Metabolic encephalopathy; F03.91 Unspecified dementia, unspecified severity, with behavioral disturbance; I45.2 Bifascicular block; G93.1 Anoxic brain damage, not elsewhere classified; R94.31 Abnormal electrocardiogram [ECG] [EKG]; I95.9 Hypotension, unspecified; E78.00 Pure hypercholesterolemia, unspecified; I10 Essential (primary) hypertension; K21.9 Gastro-esophageal reflux disease without esophagitis; Z66 Do not resuscitate; M10.9 Gout, unspecified; Z88.1 Allergy status to other antibiotic agents
CPT/HCPCS: 36415; 70450; 71045; 80053; 81001; 82140; 82550; 83735; 84484; 85025; 85610; 85730; 86140; 93005; 93010; 94002; 96365; 96372; 96375; 96376; 99221; 99291; J0171; J1200; J1630; J2060; J2270; J2704; J3475; J3490; J7040; J7060